=== PATIENT | female | born 1950 | race Caucasian/White ===

== ENCOUNTER 2017-01-01 16:32 | Observation (INO) | payer BC ==
[2017-01-01] MEDS ORDERED: ASPIRIN 81 MG CHEW PO STA (16:59)
[2017-01-01] MEDS ORDERED: NITROGLYCERIN OINT 1 INCH/GM PACKET TOPICAL STA (16:59)
--- NOTE | 2017-01-01 17:03 | ED ---
Chest Pain HPI - General Chief Complaint: Chest Pain Stated Complaint: Chest Pain Time Seen by Provider: 01/01/17 16:43 Source: patient Mode of arrival: EMS Limitations: no limitations - History of Present Illness Initial Comments: This 66-year-old white male female presents with a complaint of some chest pain. It is primarily into the lower sternal region and described as a pressure -type burning sensation. She denies any radiation of the pain but does state that her feet and hands felt numb at one point. It is associated with some shortness of breath as well as some diaphoresis. She states that her chest pain resolved approximately 3 minutes before EMS arrival. She apparently took 3 baby aspirin earlier. She denies any heart problems in the past. She's never had a heart catheterization or stress test. She denies any leg pain or swelling or history of DVT or PE. She apparently has had 5-6 episodes of this previously but has never been checked out medically for them. She states that they usually last approximately 30 minutes and then go away. This current event was non-exertionally related. Her last event was back in August of this year. She denies any chronic medical problems and does not take any medications at home. No other complaints or modifying factors. - Related Data Home Medications Medication Instructions Recorded Confirmed No Known Home Medications [No 01/01/17 01/01/17 Known Home Medications] Allergies Allergy/AdvReac Type Severity Reaction Status Date / Time No Known Allergies Allergy Verified 01/01/17 16:48 Review of Systems ROS Statement: Those systems with pertinent positive or pertinent negative responses have been documented in the HPI. ROS Other: All systems not noted in ROS Statement are negative. Past Medical History Past Medical History: No Reported History History of Any Multi-Drug Resistant Organisms: None Reported Past Surgical History: Tubal Ligation Past Psychological History: No Psychological Hx Reported Smoking Status: Never smoker Past Alcohol Use History: None Reported Past Drug Use History: None Reported General Exam - General Exam Comments Initial Comments: GENERAL: The patient is well nourished and well hydrated. VITAL SIGNS: Heart rate, blood pressure, respiratory rate reviewed as recorded in nurse's notes. EYES: Pupils are round and reactive. Extraocular movements are intact. No conjunctival / lid redness or swelling. ENT: No external evidence of injury, swelling, or ecchymosis. Airway is patent. Throat is clear. NECK: Nontender. No swelling or evidence of injury. No subcutaneous emphysema. Trachea is midline. No thyroid mass. HEART: Regular rate and rhythm. Good peripheral pulses. LUNGS/CHEST: Breath sounds clear and equal bilaterally. No rales, rhonchi, or wheezes. No ecchymosis, subcutaneous emphysema, or tenderness. ABDOMEN: Abdomen soft without tenderness. No palpable masses or organomegaly. No peritoneal signs. No abdominal wall swelling or ecchymosis. EXTREMITIES: No extremity tenderness. Normal muscle tone and function. No thoracolumbar tenderness. NEUROLOGIC: Sensation is grossly intact. Cranial nerve exam reveals face is symmetrical, tongue is midline, speech is clear. SKIN: No abrasions or ecchymosis is noted. No induration or masses noted. PSYCHIATRIC: Alert and oriented. Appropriate behavior and judgment. Limitations: no limitations Course Vital Signs 01/01/17 01/01/17 16:33 17:41 Temperature 98.2 F Pulse Rate 58 L 61 Respiratory 20 18 Rate Blood Pressure 135/70 119/70 O2 Sat by Pulse 99 98 Oximetry Chest Pain [facility] The patient was seen and examined. All diagnostics were reviewed. EKG shows a normal sinus rhythm at a rate of 61 with an incomplete right bundle-branch block. There is no acute ST-T wave changes identified. The SC interval is 152 , QRS duration is 112, and the QTc interval is 442. She receives some Nitropaste as well as aspirin. She states that all of her chest pain has resolved upon initial evaluation. She still is having some mild shortness of breath. The laboratory is reviewed and overall is fairly unremarkable. The chest x-ray does not show any acute processes per my review. The possibility of acute coronary syndrome certainly is possible. It is felt as though her symptoms are fairly classic with no previous cardiac workup to rule out any coronary artery disease. It is felt as though she would require admission to the hospital for further treatment. She is agreeable. Case is discussed with LEILA May who is agreeable to admission under Dr. Domingo. Disposition Clinical Impression: Chest pain, Dyspnea, Unstable angina Disposition: ADMITTED IP TO THIS [facility] Condition: Fair Time of Disposition: 18:27 Decision Date: 01/01/17 Decision Time: 18:27
[2017-01-01 17:39] LABS: Basophils # (A) 0.1 k/uL (0-0.2); Basophils % (A) 1 %; CH 31.3; CHCM 33.6; Eosinophils # (A) 0.1 k/uL (0-0.7); Eosinophils % (A) 2 %; HCT 40.4 % (34.0-46.0); HDW 2.48; HGB 13.4 gm/dL (11.4-16.0); Luc # (Auto) 0.08; Luc % (Auto) 1; Lymphocytes # (A) 1.6 k/uL (1.0-4.8); Lymphocytes % (A) 18 %; MCHC 33.1 g/dL (31.0-37.0); MCV 93.6 fL (80.0-100.0); Mean Platelet Volume 7.5; Monocytes # (A) 0.5 k/uL (0-1.0); Monocytes % (A) 5 %; Neutrophils # (A) 6.6 k/uL (1.3-7.7); Neutrophils % (A) 74 %; RBC 4.32 m/uL (3.80-5.40); RDW 14.5 % (11.5-15.5); WBC (Perox) 8.56
[2017-01-01 17:47] LABS: ALT 45 U/L (9-52); AST 62 U/L (14-36); Alkaline Phosphatase 57 U/L (38-126); Blood Urea Nitrogen 12 mg/dL (7-17); Calcium 9.2 mg/dL (8.4-10.2); Carbon Dioxide 26 mmol/L (22-30); Chloride 107 mmol/L (98-107); Glucose 91 mg/dL (74-99); Magnesium 2.1 mg/dL (1.6-2.3); Non-African American GFR(MDRD) >60 (>60 ml/min/1.73 sqM); Total Bilirubin 0.5 mg/dL (0.2-1.3); Total Protein 6.6 g/dL (6.3-8.2)
[2017-01-01 17:48] LABS: Anion Gap 9 mmol/L; Potassium 3.8 mmol/L (3.5-5.1); Sodium 142 mmol/L (137-145)
[2017-01-01 17:57] LABS: Creatine Kinase 107 U/L (30-135)
[2017-01-01 18:06] LABS: Prothrombin Time 10.3 sec (9.0-12.0)
[2017-01-01 18:09] LABS: Troponin I <0.012 ng/mL (0.000-0.034)
--- NOTE | 2017-01-01 18:18 | XR ---
EXAMINATION TYPE: XR chest 2V DATE OF EXAM: 01/01/2017 COMPARISON: NONE HISTORY: Chest pain TECHNIQUE: Frontal and lateral views of the chest are obtained. FINDINGS: Heart and mediastinum are normal. Lungs are clear. Thoracic aorta shows mild atheromatous change. There are no hilar masses. There is no pleural effusion. Bony thorax is intact. IMPRESSION: No active cardiopulmonary disease.
[2017-01-01] MEDS ORDERED: NITROGLYCERIN SL TABS 0.4 MG TAB SUBLINGUAL PRN (18:27)
[2017-01-01] MEDS ORDERED: HEPARIN SODIUM,PORCINE 5,000 UNIT/ML 1 ML VIAL IV ONE (18:27)
[2017-01-01] MEDS ORDERED: HEPARIN SODIUM,PORCINE 5,000 UNIT/ML 1 ML VIAL IV PRN (18:27)
[2017-01-01] MEDS ORDERED: HEPARIN SODIUM,PORCINE/D5W PMX 25,000 UNIT in DEXTROSE/WATER 1 500ML.BAG IV SCH (18:30)
[2017-01-01 20:05] VITALS: BMI 25.1
[2017-01-01] MEDS ORDERED: ACETAMINOPHEN TAB 325 MG TAB PO PRN (22:52)
[2017-01-01] MEDS: NITROGLYCERIN OINT 1 INCH/GM PACKET TOPICAL SCH (23:41)
[2017-01-02 00:41] LABS: Creatine Kinase 97 U/L (30-135)
[2017-01-02 00:55] LABS: Troponin I <0.012 ng/mL (0.000-0.034)
[2017-01-02] MEDS: NITROGLYCERIN OINT 1 INCH/GM PACKET TOPICAL SCH ×2 (05:51→13:08)
[2017-01-02 05:57] LABS: Mean Platelet Volume 7.7
[2017-01-02 06:08] LABS: Cholesterol 204 mg/dL (<200); HDL Cholesterol 74 mg/dL (40-60)
[2017-01-02 06:38] LABS: Creatine Kinase 97 U/L (30-135)
[2017-01-02 06:50] LABS: Creatine Kinase MB 0.9 ng/mL (0.0-2.4); Troponin I <0.012 ng/mL (0.000-0.034)
[2017-01-02 07:58] VITALS: RESP 18
[2017-01-02] MEDS ORDERED: ASPIRIN 325 MG TAB PO SCH (09:00)
--- NOTE | 2017-01-02 09:13 | ECHOF ---
Referral Reason:cp and sob MEASUREMENTS -------- HEIGHT: 175.3 cm WEIGHT: 77.1 kg BP: 101/54 IVSd: 1.1 cm (0.6 - 1.1) LVIDd: 3.9 cm (3.9 - 5.3) LVPWd: 1.4 cm (0.6 - 1.1) IVSs: 1.7 cm LVIDs: 2.5 cm LVPWs: 1.7 cm Ao Diam: 3.1 cm (2.0 - 3.7) AV Cusp: 1.4 cm (1.5 - 2.6) LA Diam: 2.6 cm (2.7 - 3.8) MV EXCURSION: 13.189 mm (> 18.000) MV EF SLOPE: 99 mm/s (70 - 150) EPSS: 0.8 cm MV E Wally: 0.77 m/s MV DecT: 232 ms MV A Wally: 0.53 m/s MV E/A Ratio: 1.44 RAP: 5.00 mmHg RVSP: 14.00 mmHg FINDINGS -------- Sinus rhythm. This was a technically good study. There is mild concentric left ventricular hypertrophy. Overall left ventricular systolic function is normal with, an EF between 55 - 60 %. The right ventricle is normal in size and function. The left atrium is normal in size. The right atrium is normal in size. The aortic valve is trileaflet, and appears structurally normal. No aortic stenosis or regurgitation. There is trace mitral regurgitation. Trace tricuspid regurgitation present. The right ventricular systolic pressure, as measured by Doppler, is 14.00mmHg. Pulmonic valve appears structurally normal. The aortic root size is normal. Normal inferior vena cava with normal inspiratory collapse consistent with estimated right atrial pressure of 5 mmHg. The pericardium is normal. Echo free space may represent effusion or a pericardial fat pad. CONCLUSIONS -------- 1. Sinus rhythm. 2. Trace tricuspid regurgitation present. 3. The right ventricular systolic pressure, as measured by Doppler, is 14.00mmHg. 4. Pulmonic valve appears structurally normal. 5. The aortic root size is normal. 6. Normal inferior vena cava with normal inspiratory collapse consistent with estimated right atrial pressure of 5 mmHg. 7. The pericardium is normal. 8. Echo free space may represent effusion or a pericardial fat pad. 9. This was a technically good study. 10. There is mild concentric left ventricular hypertrophy. 11. Overall left ventricular systolic function is normal with, an EF between 55 - 60 %. 12. The right ventricle is normal in size and function. 13. The left atrium is normal in size. 14. The right atrium is normal in size. 15. The aortic valve is trileaflet, and appears structurally normal. No aortic stenosis or regurgitation. 16. There is trace mitral regurgitation. HEATING TECHNICIAN: Jessie Perez RDCS
--- NOTE | 2017-01-02 10:06 | P.CRDCN ---
History of Present Illness Consult date: 01/02/17 History of present illness: This is a 66-year-old female with no significant past medical history. She presented to the emergency department with complaints of midsternal chest pressure associated with shortness of breath and bilateral finger tingling. The pain is described as burning. Does not radiate into the arm neck or jaw. The chest pain came on while she was doing some light housework. The pain resolved on its own. With no specific aggravating or alleviating factors she can verbalize. She states she has never seen a butcher assistant for any reason. She follows with Dr. Amaral periodically. She has never had a stress test he does not take any daily medications. This has happened approximately 5-6 times over the previous year and she has never been checked out medically for any of these symptoms. She is was associated this with the reflux. She did eat 30 minutes prior to this particular event. EKG shows a partial right bundle branch block, there is no old EKG for comparison. No ST changes. Chest x-ray is negative for any acute cardiopulmonary process. Troponins are negative 3. Review of Systems REVIEW OF SYSTEMS: Symptoms have completely resolved. Patient denies any chest discomfort. No shortness of breath. No diaphoresis. Denies headache, dizziness, blurred vision, double vision. No dyspnea on exertion. Patient denies any stomach discomfort. No nausea, vomiting. No hematochezia. No hematemesis. Denies any black stools or blood in his stools. No syncope. No palpitations. No cough. No recent fever or chills. No muscle weakness or numbness. Past Medical History Past Medical History: No Reported History History of Any Multi-Drug Resistant Organisms: None Reported Past Surgical History: Tubal Ligation Additional Past Surgical History / Comment(s): Bumionectomy Past Anesthesia/Blood Transfusion Reactions: No Reported Reaction Past Psychological History: Depression Smoking Status: Never smoker Past Alcohol Use History: None Reported Past Drug Use History: None Reported - Past Family History Mother Family Medical History: CVA/TIA Additional Family Medical History / Comment(s): Mastectomy Father History Unknown: Yes Brother(s) Additional Family Medical History / Comment(s): of pancreatic CA Medications and Allergies Home Medications Medication Instructions Recorded Confirmed Type No Known Home Medications [No 01/01/17 01/01/17 History Known Home Medications] Allergies Allergy/AdvReac Type Severity Reaction Status Date / Time No Known Allergies Allergy Verified 01/01/17 23:47 Physical Exam Vitals: Vital Signs Temp Pulse Pulse Resp BP BP Pulse Ox 01/02/17 07:57 97.5 F L 60 18 100/63 97 01/02/17 04:00 50 L 16 01/02/17 03:51 98.2 F 60 16 101/54 94 L 01/02/17 00:00 48 L 16 01/01/17 23:42 98.1 F 62 16 102/64 96 01/01/17 20:00 52 L 16 01/01/17 19:27 97.7 F 65 16 126/76 93 L 01/01/17 18:48 97.3 F L 01/01/17 18:27 66 20 130/73 97 01/01/17 17:41 61 18 119/70 98 01/01/17 16:33 98.2 F 58 L 20 135/70 99 Intake and Output 01/01/17 01/02/17 01/02/17 22:59 06:59 14:59 Intake Total 612 495.196 Balance 612 495.196 Intake: IV 40 269 0.9 NS @ KVO 40 160 Heparin Sodium,Porcine/ 109 D5w Pmx 25,000 unit In Dextrose/Water 1 500ml. bag @ 12 UNITS/KG/HR 18.5 mls/hr IV .Q24H [facility] Rx#: [id number] Intake, IV Titration 72 226.196 Amount Heparin Sodium,Porcine/ 72 226.196 D5w Pmx 25,000 unit In Dextrose/Water 1 500ml. bag @ 12 UNITS/KG/HR 18.5 mls/hr IV .Q24H [facility] Rx#: [id number] Oral 500 Other: Voiding Method Toilet Toilet # Voids 2 3 Weight 77.111 kg GENERAL: This is a 66-year-old female in no apparent distress at the time of my examination. HEENT: Head is atraumatic, normocephalic. Pupils are equal, round. Sclerae anicteric. Conjunctivae are clear. Mucous membranes of the mouth are moist. Neck is supple. There is no jugular venous distention. No carotid bruit is heard. LUNGS: Clear to auscultation no wheezes, rales or rhonchi. No chest wall tenderness is noted on palpation or with deep breathing. HEART: Regular rate and rhythm without murmurs, rubs or gallops. S1 and S2 heard. ABDOMEN: Soft, nontender. Bowel sounds are heard. No organomegaly noted. EXTREMITIES: 2+ peripheral pulses with no evidence of peripheral edema and no calf tenderness noted. NEUROLOGIC: Patient is awake, alert and oriented x3. Results 01/02/17 05:29 01/01/17 17:30 Cardiac Enzymes 01/01/17 01/01/17 01/01/17 Range/Units 17:30 17:30 23:54 AST 62 H (14-36) U/L CK-MB (CK-2) 1.0 1.0 (0.0-2.4) ng/mL Troponin I <0.012 <0.012 (0.000-0.034) ng/mL 01/02/17 Range/Units 05:29 AST (14-36) U/L CK-MB (CK-2) 0.9 (0.0-2.4) ng/mL Troponin I <0.012 (0.000-0.034) ng/mL Coagulation 01/01/17 01/01/17 01/02/17 Range/Units 17:30 23:54 05:29 PT 10.3 (9.0-12.0) sec APTT 21.0 L 46.0 H 45.3 H (22.0-30.0) sec Lipids 01/02/17 Range/Units 05:29 Triglycerides 71 (<150) mg/dL Cholesterol 204 H (<200) mg/dL HDL Cholesterol 74 H (40-60) mg/dL CBC 01/01/17 01/02/17 Range/Units 17:30 05:29 WBC 9.0 (3.8-10.6) k/uL RBC 4.32 (3.80-5.40) m/uL Hgb 13.4 (11.4-16.0) gm/dL Hct 40.4 (34.0-46.0) % Plt Count 210 179 (150-450) k/uL Comprehensive Metabolic Panel 01/01/17 Range/Units 17:30 Sodium 142 (137-145) mmol/L Potassium 3.8 (3.5-5.1) mmol/L Chloride 107 (98-107) mmol/L Carbon Dioxide 26 (22-30) mmol/L BUN 12 (7-17) mg/dL Creatinine 0.70 (0.52-1.04) mg/dL Glucose 91 (74-99) mg/dL Calcium 9.2 (8.4-10.2) mg/dL AST 62 H (14-36) U/L ALT 45 (9-52) U/L Alkaline Phosphatase 57 (38-126) U/L Total Protein 6.6 (6.3-8.2) g/dL Albumin 4.0 (3.5-5.0) g/dL Current Medications Generic Name Dose Route Start Last Admin Trade Name Freq PRN Reason Stop Dose Admin Acetaminophen 650 mg 01/01/17 22:52 01/01/17 22:57 Tylenol Tab PO 650 mg Q6HR PRN Administration Fever and/ or Pain Aspirin 325 mg 01/02/17 09:00 01/02/17 09:43 Aspirin PO 325 mg DAILY [facility] Administration Nitroglycerin 1 inch 01/02/17 00:00 01/02/17 05:51 Nitro-Bid Oint TOPICAL Not Given Q6HR [facility] Nitroglycerin 0.4 mg 01/01/17 18:27 Nitrostat SUBLINGUAL Q5M PRN Chest Pain Sodium Chloride 10 ml 01/01/17 21:00 01/02/17 09:43 Saline Flush IV 10 ml BID [facility] Administration Intake and Output 01/01/17 01/02/17 01/02/17 22:59 06:59 14:59 Intake Total 612 495.196 Balance 612 495.196 Intake: IV 40 269 0.9 NS @ KVO 40 160 Heparin Sodium,Porcine/ 109 D5w Pmx 25,000 unit In Dextrose/Water 1 500ml. bag @ 12 UNITS/KG/HR 18.5 mls/hr IV .Q24H [facility] Rx#: [id number] Intake, IV Titration 72 226.196 Amount Heparin Sodium,Porcine/ 72 226.196 D5w Pmx 25,000 unit In Dextrose/Water 1 500ml. bag @ 12 UNITS/KG/HR 18.5 mls/hr IV .Q24H [facility] Rx#: [id number] Oral 500 Other: Voiding Method Toilet Toilet # Voids 2 3 Weight 77.111 kg 01/02/17 05:29 01/01/17 17:30 - Imaging and Cardiology Echo: report reviewed (Right ventricular systolic pressure 14 mmHg, ejection fraction 55-60%) - EKG Interpretation EKG: sinus rhythm, normal ST/T (No old EKG for comparison. EKG shows a incomplete right bundle branch block.) Assessment and Plan Plan: ASSESSMENT 1. Chest pain, atypical PLAN We will proceed with a complete echocardiogram as well as a stress echo. From a cardiac standpoint if the stress echo is negative the patient is stable for discharge home. We will not add any medications at this time. She should follow -up with Dr. Amaral further evaluate possible gastrointestinal etiology. Thank you for this consultation. Nurse Practitioner note has been reviewed, I agree with a documented findings and plan of care. Patient was seen and examined.
--- NOTE | 2017-01-02 11:14 | ECHOS ---
DATE OF SERVICE: 01/02/2017 TYPE OF REPORT: STRESS ECHOCARDIOGRAM INDICATION: Chest pain. BASELINE HEART RATE: 63 BASELINE BLOOD PRESSURE: 128/80 MAXIMUM HEART RATE: 148 MAXIMUM BLOOD PRESSURE: 170/74 85% MPHR: 133 100% MPHR: 156 METS: II MAXIMUM STAGE REACHED: 7.3 TOTAL EXERCISE TIME: 6:02 Baseline EKG revealed a normal sinus rhythm with an incomplete right bundle branch block pattern. Patient walked for 6 minutes on a standard Bridger protocol. Achieved a maximal heart rate of 148 beats per minute, well above 85 % of predicted maximal. Resting heart rate was 63. Peak heart rate was 148. Resting blood pressure was 128/80 and peak blood pressure was 170/74. EKG did not reveal any ST-segment changes to indicate ischemia. Patient did not have any angina or arrhythmia. By EKG criteria this is a negative stress test with fair exercise capacity. Baseline echo images reveal a normal wall motion, wall thickening of all segments. At peak exercise, there was good augmentation of left ventricular wall motion, wall thickening or all segments suggesting that there is no evidence of stress induced ischemia on this study. FINAL IMPRESSION: 1. By EKG criteria, this is a negative stress test with fair exercise capacity. 2. Negative stress echocardiogram. KWAKUD
[2017-01-02 15:44] VITALS: BP 133/65; PULSE 77; TEMP 98.5
--- NOTE | 2017-01-02 22:16 | P.HPIM ---
History of Present Illness H&P Date: 01/02/17 Chief Complaint: Chest pain This is a 66-year-old female without significant past medical history presented to the emergency department with complaints of midsternal chest pressure associated with shortness of breath and bilateral finger tingling and diaphoresis. Patient is mainly in the epigastric region. burning type. Does not radiate into the arm neck or jaw. The chest pain came on while she was doing some light housework. The pain resolved on its own. Lasted for about 15- 20 minutes. With no specific aggravating or alleviating factors she can verbalize. She follows with Dr. Amaral periodically. She has never had a stress test he does not take any daily medications. Patient denied any recent travel or illness. This has happened approximately 5-6 times over the previous year and she has never been checked out medically for any of these symptoms. No history of GERD or hiatal hernia. She did eat 30 minutes prior to this particular event. EKG shows a partial right bundle branch block, there is no old EKG for comparison. No ST changes. Chest x-ray is negative for any acute cardiopulmonary process. Troponins are negative 3. Review of Systems CONSTITUTIONAL: No fever, no malaise, no fatigue. HEENT: No recent visual problems or hearing problems. Denied any sore throat. CARDIOVASCULAR: No chest pain, orthopnea, PND, no palpitations, no syncope. PULMONARY: , no hemoptysis. GASTROINTESTINAL: No diarrhea, no nausea, no vomiting, no abdominal pain. Normoactive bowel sounds. NEUROLOGICAL: No headaches, no weakness, no numbness. HEMATOLOGICAL: Denies any bleeding or petechiae. GENITOURINARY: Denies any burning micturition, frequency, or urgency. MUSCULOSKELETAL/RHEUMATOLOGICAL: Denies any joint pain, swelling, or any muscle pain. ENDOCRINE: Denies any polyuria or polydipsia. The rest of the 14-point review of systems is negative. Past Medical History Past Medical History: No Reported History History of Any Multi-Drug Resistant Organisms: None Reported Past Surgical History: Tubal Ligation Additional Past Surgical History / Comment(s): Bumionectomy Past Anesthesia/Blood Transfusion Reactions: No Reported Reaction Past Psychological History: Depression Smoking Status: Never smoker Past Alcohol Use History: None Reported Past Drug Use History: None Reported - Past Family History Mother Family Medical History: CVA/TIA Additional Family Medical History / Comment(s): Mastectomy Father History Unknown: Yes Brother(s) Additional Family Medical History / Comment(s): of pancreatic CA Medications and Allergies Home Medications Medication Instructions Recorded Confirmed Type No Known Home Medications [No 01/01/17 01/01/17 History Known Home Medications] Allergies Allergy/AdvReac Type Severity Reaction Status Date / Time No Known Allergies Allergy Verified 01/01/17 23:47 Physical Exam Vitals: Vital Signs Temp Pulse Pulse Resp BP BP Pulse Ox 01/02/17 15:43 98.5 F 77 18 133/65 95 01/02/17 11:47 97.9 F 66 18 111/62 97 01/02/17 07:57 97.5 F L 60 18 100/63 97 01/02/17 04:00 50 L 16 01/02/17 03:51 98.2 F 60 16 101/54 94 L 01/02/17 00:00 48 L 16 01/01/17 23:42 98.1 F 62 16 102/64 96 01/01/17 20:00 52 L 16 01/01/17 19:27 97.7 F 65 16 126/76 93 L 01/01/17 18:48 97.3 F L 01/01/17 18:27 66 20 130/73 97 Intake and Output 01/02/17 01/02/17 01/02/17 06:59 14:59 22:59 Intake Total 495.196 360 Balance 495.196 360 Intake: IV 269 0.9 NS @ KVO 160 Heparin Sodium,Porcine/ 109 D5w Pmx 25,000 unit In Dextrose/Water 1 500ml. bag @ 12 UNITS/KG/HR 18.5 mls/hr IV .Q24H [facility] Rx#: [id number] Intake, IV Titration 226.196 Amount Heparin Sodium,Porcine/ 226.196 D5w Pmx 25,000 unit In Dextrose/Water 1 500ml. bag @ 12 UNITS/KG/HR 18.5 mls/hr IV .Q24H [facility] Rx#: [id number] Oral 360 Other: Voiding Method Toilet Toilet Toilet # Voids 3 PHYSICAL EXAMINATION: Patient is lying in the bed comfortably, no acute distress, awake alert and oriented.. HEENT: Normocephalic. Neck is supple. Pupils reactive. Nostrils clear. Oral cavity is moist. Ears reveal no drainage. Neck reveals no JVD, carotid bruits, or thyromegaly. CHEST EXAMINATION: Trachea is central. Symmetrical expansion. Lung russell clear to auscultation and percussion. CARDIAC: Normal S1, S2 with no gallops. No murmurs ABDOMEN: Soft. Bowel sounds normal. No organomegaly. No abdominal bruits. Extremities reveal no edema. No clubbing or cyanosis Neurologically awake, alert, oriented x3 with well-coordinated movements. Skin: no rash or skin lesions Musculoskeletal: no joint swelling or deformity. Results CBC & Chem 7: 01/02/17 05:29 01/01/17 17:30 Labs: Abnormal Lab Results - Last 24 Hours (Table) 01/01/17 01/02/17 01/02/17 Range/Units 23:54 05:29 05:29 APTT 46.0 H 45.3 H (22.0-30.0) sec Cholesterol 204 H (<200) mg/dL LDL Cholesterol, Calc 116 H (0-99) mg/dL HDL Cholesterol 74 H (40-60) mg/dL Thrombosis Risk Factor Assmnt - DVT/VTE Prophylaxis DVT/VTE Prophylaxis: Pharmacologic Prophylaxis ordered - Choose All That Apply Any of the Below Risk Factors Present?: No Other Risk Factors: Yes Each Risk Factor Represents 2 Points: Age 61-74 years Other congenital or acquired thrombophilia - If yes, enter type in comment: No Thrombosis Risk Factor Assessment Total Risk Factor Score: 2 Thrombosis Risk Factor Assessment Level: Low Risk Assessment and Plan Plan: #1 atypical chest pain. Likely gastrointestinal origin #2 no history of smoking. No history of GERD hiatal hernia. Plan. Patient will be continued on telemetry monitoring. Cardiology has been consulted due to frequent onset of symptoms. Patient was recommended to have stress echocardiogram. We will continue with telemetry monitoring and follow closely. further recommendations based on the clinical course..
--- NOTE | 2017-01-02 22:19 | P.DS ---
Providers Date of admission: 01/01/17 18:27 Expected date of discharge: 01/02/17 Attending physician: Owen Domingo Consults: 01/01/17 18:27 Consult Physician Urgent Consulting Provider: Nahid Zaldivar Consult Reason/Comments: cp and sob Do you want consulting provider notified?: Yes Primary care physician: Munir Delatorre Hospital Course: Discharge diagnosis: #1 atypical chest pain. Likely GERD. Stress echo negative. Low take it con's syndrome #2 hyperlipidemia #2 no history of smoking. No history of GERD hiatal hernia. Hospital course This is a 66-year-old female without significant past medical history presented to the emergency department with complaints of midsternal chest pressure associated with shortness of breath and bilateral finger tingling and diaphoresis. Patient is mainly in the epigastric region. burning type. Does not radiate into the arm neck or jaw. The chest pain came on while she was doing some light housework. The pain resolved on its own. Lasted for about 15- 20 minutes. With no specific aggravating or alleviating factors she can verbalize. She follows with Dr. Amaral periodically. She has never had a stress test he does not take any daily medications. Patient denied any recent travel or illness. This has happened approximately 5-6 times over the previous year and she has never been checked out medically for any of these symptoms. No history of GERD or hiatal hernia. She did eat 30 minutes prior to this particular event. EKG shows a partial right bundle branch block, there is no old EKG for comparison. No ST changes. Chest x-ray is negative for any acute cardiopulmonary process. Troponins are negative 3. Patient was seen by cardiology and recommended stress echocardiogram. Which was done and is negative result. Otherwise patient is chest pain-free. Patient was also found to have elevated cholesterol level with the LDL level 111. Patient advised with diet and exercise and lifestyle modification. Otherwise patient is stable to be discharged home. Procedures: Stress echocardiogram Patient Condition at Discharge: Stable Plan - Discharge Summary New Discharge Prescriptions: No Action No Known Home Medications [No Known Home Medications] Discharge Medication List No Known Home Medications [No Known Home Medications] 01/01/17 [History] Follow up Appointment(s)/Referral(s): Gurpreet White MD [STAFF PHYSICIAN] - As Needed Juan Ramon Amaral MD [Primary Care Provider] - 3 Days Patient Instructions/Handouts: Chest Pain (GEN) Discharge Disposition: HOME SELF-CARE
== END 2017-01-02 17:36 | disposition home or self-care (01) ==
LOC: EC 16:32 → 3OBS 18:27
PROVIDERS: ADMIT Internal Medicine; ATTEND Internal Medicine
DX: R07.89 Other chest pain (principal); E78.5 Hyperlipidemia, unspecified; E78.00 Pure hypercholesterolemia, unspecified; R20.2 Paresthesia of skin; R61 Generalized hyperhidrosis; R10.13 Epigastric pain; R06.02 Shortness of breath; Z80.0 Family history of malignant neoplasm of digestive organs; Z82.3 Family history of stroke
CPT/HCPCS: 99285 ×2; 96376 ×2; 96365; 96366 ×2; 36415; 93005; 93017; 93306; 93350; 85379; 80061; 80053; 82550 ×2; 82553 ×2; 83735; 84484 ×2; 85025; 85049; 85610; 85730 ×2; 71020; G0378 ×2; J1644 ×2

== ENCOUNTER 2017-01-30 12:06 | Day surgery (SDC) | payer BC ==
[2017-01-26 12:35] VITALS: BMI 25.4
[~2017-01-30 12:06] MED LIST: LACTATED RINGERS 1,000 ML IV SCH
[2017-01-30] MEDS ORDERED: LIDOCAINE 1% 20 ML VIAL (10MG/ML) FOR IV START INTRADERMA ONE (12:34)
[2017-01-30] MEDS ORDERED: PROPOFOL 10 MG/ML 20 ML VIAL IV ONE (13:14)
[2017-01-30] MEDS ORDERED: GLYCOPYRROLATE 0.2 MG/ML 2 ML VIAL ONE (13:14)
[2017-01-30] MEDS ORDERED: LIDOCAINE 1% INJ 10MG/ML (20 ML MDV) ONE (13:14)
[2017-01-30 14:14] VITALS: BP 115/77; PULSE 62; RESP 18; TEMP 97.4
--- NOTE | 2017-01-30 14:34 | P.PCN ---
Date of Procedure: 01/30/17 Preoperative Diagnosis: Postoperative Diagnosis: Procedure(s) Performed: Procedures: 1. Esophagogastroduodenoscopy and biopsy. 2. Total colonoscopy. Preoperative diagnosis: Atypical chest pain and screening for colon cancer. Postoperative diagnosis: 1. Very small sliding hiatal hernia with no obvious esophagitis or complicated reflux disease. 2. Minimal gastritis and duodenitis. 3. Normal colon exam. Preparation: HalfLytely prep. Sedation: Was provided by anesthesia. Brief clinical history: The patient is a 66-year-old female who was recently hospitalized for epigastric pain and atypical chest pain with negative cardiac workup. She was recommended GI workup to rule out peptic ulcer disease or complicated reflux disease. In addition, and since she had no prior colonoscopy we were asked to consider a colonoscopy as well. Procedure: With the patient on her left lateral decubitus position and after informed consent and adequate sedation, I passed the Olympus-GIF 160 video upper endoscope through the cricopharyngeus down the esophagus. GE junction was around 40 cm from the incisors and there was a small sliding hiatal hernia. The esophagus appeared healthy with no evidence of esophagitis or complicated reflux disease. The endoscope was then passed into the stomach which was insufflated with air and inspected in detail including the retroflex view in the cardia. There was some mottling and erythema in the antrum but no ulcers or erosions. Pyloric channel did not show any ulcers. Duodenal bulb, post bulbar area and descending duodenum showed minimal erythema. I obtained biopsies from the duodenum, antrum and esophagus then the endoscope was withdrawn and I proceeded with the colonoscopy. The perianal area did not show any fissures or fistulas. There were no masses felt on digital rectal examination. The Olympus CFQ 160L video colonoscope was then inserted in the rectum in the usual fashion and advanced to the cecum. The mucosa appeared healthy. No polyps or tumors were seen or any obvious diverticular disease or other pathology. I retroflexed the endoscope in the rectum before the endoscope was withdrawn. The patient tolerated the procedure well. Plan: The patient was reassured. Will await pathology results. I recommended repeat screening colonoscopy in around 10 years. She will follow-up with you as planned and further plans will be made based on her course and biopsy results. Consideration would be given for imaging studies of the gallbladder and pancreas. Implants: Indications for Procedure: Operative Findings: Description of Procedure:
== END 2017-01-30 14:34 | disposition home or self-care (01) ==
LOC: ORWHC2ENDO 12:06
DX: K21.9 Gastro-esophageal reflux disease without esophagitis (principal); R19.4 Change in bowel habit; K44.9 Diaphragmatic hernia without obstruction or gangrene; K29.80 Duodenitis without bleeding; K29.50 Unspecified chronic gastritis without bleeding; B96.81 Helicobacter pylori [H. pylori] as the cause of diseases classified elsewhere
CPT/HCPCS: 88305; 88342; 45378; 43239; J2001; J2704

== ENCOUNTER → 2017-03-07 | Outpatient (CLI) | payer BC ==
--- NOTE | 2017-03-07 11:54 | US ---
EXAMINATION TYPE: US abdomen complete DATE OF EXAM: 03/07/2017 COMPARISON: NONE CLINICAL HISTORY: R10.84 Gen Abd Pain. Patient stated has had multiple episodes in past 3 years of ep igastric pain radiating to back; recently admitted for cardiac workup. EXAM MEASUREMENTS: Liver Length: 16.2 cm Gallbladder Wall: 0.4 cm CBD: 0.5 cm Spleen: 8.2 cm Right Kidney: 10.1 x 3.8 x 5.3 cm Left Kidney: 9.8 x 4.0 x 5.9 cm Pancreas: Unremarkable Liver: Unremarkable Gallbladder: non mobile, large shadowing stone = 4.0 x 1.9 x 1.9cm imaged in fundus of gallbladder w ith separate sludge area; thickened gallbladder wall Evidence for sonographic Lawson's sign: No CBD: wnl Spleen: wnl Right Kidney: No hydronephrosis or masses seen Left Kidney: No hydronephrosis or masses seen Upper IVC: wnl Abd Aorta: wnl IMPRESSION: Large shadowing cholelith within the gallbladder body without common bile duct dilation, pericholecys tic fluid, or gallbladder wall thickening to indicate acute cholecystitis.
== END | disposition home or self-care (01) ==
LOC: RADUSWWP 09:22
PROVIDERS: ATTEND Internal Medicine
DX: K80.20 Calculus of gallbladder without cholecystitis without obstruction (principal)
CPT/HCPCS: 76700

== ENCOUNTER → 2017-04-19 | Outpatient (CLI) | payer BC ==
--- NOTE | 2017-04-19 17:43 | BD ---
EXAMINATION TYPE: MG DEXA axial skeleton. DATE OF EXAM: 04/19/2017 COMPARISON: 12.26.2000 CLINICAL HISTORY: PT IS A 66 YR OLD FEMALE.....ICD-10 CODE: N95.1 POST MENOPAUSAL SYMPTOMS Height: 67.5 Weight: 172 FRAX RISK QUESTIONS: Alcohol (3 or more units per day): NO Family History (Parent hip fracture): NO Glucocorticoids (More than 3mos): NO (Ex: prednisone, prednisolone, methylprednisolone, dexamethasone, and hydrocortisone). History of Fracture in Adulthood: NO Secondary Osteoporosis: NO 1. Type 1 Diabetes: NO 2. Hyperthyroidism: NO 3. Menopause before 45: NO 4. Malnutrition: NO 5. Chronic liver disease: NO Rheumatoid Arthritis: NO Current Tobacco Use: NO RISK FACTORS HISTORY OF: Family History of Osteoporosis: NO Active: YES Diet low in dairy products/other sources of calcium: NO Postmenopausal woman: NATURAL LATE 40'S Lost more than 2 inches in height since high school: YES Hyperparathyroidism: NO Adrenal Insufficiency: NO MEDICATIONS: Additional Medications: CALCIUM MAGNESIUM, VIT D Additional History: NONE TO NOTE EXAM MEASUREMENTS: Bone mineral densitometry was performed using the [employer] System. Bone mineral density as measured about the Lumbar spine is: ----- L1-L4(G/cm2): 1.116 T Score Values are as follows: ----- L1: -0.1 ----- L2: -0.7 ----- L3: -0.3 ----- L4: -1.0 ----- L1-L4: -0.5 Bone mineral density has: Decreased -15.7% since study of: 12.26.2000 Bone mineral density about the R hip (g/cm2): 0.927 Bone mineral density about the L hip (g/cm2): 0.970 T Score values are as follows: -----R Neck: -0.9 -----L Neck: -0.9 -----R Total: -0.6 -----L Total: -0.3 Bone mineral density has: Decreased -9.6% since study of: 12.26.2000 FRAX%'S: THERE IS A 7.8% CHANCE OF A MAJOR OSTEOPOROTIC FX AND A 0.5% OF HIP FX....PROBABILITY OF FX IN 10 YRS TIME IMPRESSION: Normal (Values between +1 and -1 indicate normal bone mass). However, note that measurements border on osteopenia. Consider repeating this study in 5 years or sooner if there is some new clinical indic ation. NOTE: T-SCORE=SD OF THE YOUNG ADULT MEAN.
--- NOTE | 2017-04-20 11:36 | MM ---
Reason for exam: screening (asymptomatic). Last mammogram was performed 3 years and 4 months ago. History: Patient is postmenopausal. Family history of breast cancer in mother at age 91. Benign MG stereo VAD BX RT of the right breast, December 29, 2013. Took estrogen for 1 year. Physical Findings: A clinical breast exam by your physician is recommended on an annual basis and results should be correlated with mammographic findings. MG Screening Mammo w CAD Bilateral CC and MLO view(s) were taken. Prior study comparison: December 17, 2013, right breast MG work up mamm w CAD RT. December 10, 2013, bilateral MG screening mammo w CAD. There are scattered fibroglandular densities. There is chronic nodularity bilaterally, stable. No significant changes when compared with prior studies. ASSESSMENT: Benign, BI-RAD 2 RECOMMENDATION: Routine screening mammogram of both breasts in 1 year.
== END | disposition home or self-care (01) ==
LOC: RADBDWWP 13:34
PROVIDERS: ATTEND Obstetrics & Gynecology
DX: Z12.31 Encounter for screening mammogram for malignant neoplasm of breast (principal); M85.80 Other specified disorders of bone density and structure, unspecified site; N95.1 Menopausal and female climacteric states
CPT/HCPCS: 77080; G0202

== ENCOUNTER → 2022-04-28 | Outpatient (CLI) | payer MEDICARE ==
--- NOTE | 2022-05-01 08:11 | MM ---
Reason for Exam: Screening (asymptomatic). Last mammogram was performed 5 year(s) and 1 month(s) ago. Patient History: Menarche at age 18. First Full-Term at age 20. Postmenopausal. Patient used Estrogen for 1 year. 12/29/2013, Benign Core Biopsy on the right side. Mother had breast cancer, age 91. Daughter had breast cancer, age 48. Risk Values: Kavitha 5 year model risk: 8.7%. NCI Lifetime model risk: 24.5%. Prior Study Comparison: 12/10/2013 Bilateral Screening Mammogram, [facility]. 12/17/2013 Right Diagnostic Mammogram, [facility]. 04/19/2017 Bilateral Screening Mammogram, [facility]. Tissue Density: The breast tissue is heterogeneously dense. This may lower the sensitivity of mammography. Findings: Analyzed By CAD. There is no suspicious group of microcalcifications or new suspicious mass in either breast. Overall Assessment: Benign, BI-RAD 2 Management: Screening Mammogram of both breasts in 1 year. A clinical breast exam by your physician is recommended on an annual basis and results should be correlated with mammographic findings. Electronically signed and approved by: Vinod Morales M.D. Radiologis
== END | disposition home or self-care (01) ==
LOC: RADMAMWWP 12:40
PROVIDERS: ATTEND Obstetrics & Gynecology
DX: Z12.31 Encounter for screening mammogram for malignant neoplasm of breast (principal); Z78.0 Asymptomatic menopausal state; Z80.3 Family history of malignant neoplasm of breast
CPT/HCPCS: 77063; 77067

== ENCOUNTER → 2023-02-27 | Outpatient (CLI) | payer MEDICARE ==
[2023-02-27 15:11] LABS: Basophils # (A) 0.09 X 10*3/uL (0.00-0.10); Basophils % (A) 1.4 %; Eosinophils # (A) 0.23 X 10*3/uL (0.04-0.35); Eosinophils % (A) 3.6 %; HCT 43.2 % (37.2-46.3); HGB 13.8 d/dL (12.0-15.0); Immature Grans, Automated 0 %; Lymphocytes # (A) 2.82 X 10*3/uL (0.90-5.00); Lymphocytes % (A) 43.9 %; MCH 29.2 pg (27.0-32.0); MCHC 31.9 d/dL (32.0-37.0); MCV 91.3 FL (80.0-97.0); Mean Platelet Volume 10.4 FL (9.5-12.2); Monocytes # (A) 0.49 X 10*3/uL (0.20-1.00); Monocytes % (A) 7.6 %; NRBC Per 100 WBC 0 X 10*3/uL (0.00-0.01); Neutrophils # (A) 2.79 X 10*3/uL (1.80-7.70); Neutrophils % (A) 43.5 %; Platelet Count 235 X 10*3/uL (140-440); RBC 4.73 X 10*6/uL (4.10-5.20); RDW 14.6 % (11.5-14.5); WBC 6.42 X 10*3/uL (4.50-10.00)
[2023-02-27 16:08] LABS: Chol/HDL Ratio 3.09 Ratio; LDL Cholesterol,Calculated 132.2 mg/dL (0.0-131.0)
[2023-02-27 16:29] LABS: ALT 21 U/L (8-44); AST 26 U/L (13-35); Albumin 4.6 d/dL (3.8-4.9); Alkaline Phosphatase 61 U/L (41-126); Blood Urea Nitrogen 9.2 mg/dL (9.0-27.0); Calcium 9.7 mg/dL (8.7-10.3); Chloride 105 mmol/L (96-109); Globulin 2.7 d/dL (1.6-3.3); Glucose 97 mg/dL (70-110); Potassium 4.4 mmol/L (3.5-5.5); Sodium 142 mmol/L (135-145); Total Bilirubin 0.4 mg/dL (0.3-1.2); Total Protein 7.3 d/dL (6.2-8.2)
== END | disposition home or self-care (01) ==
LOC: LABWHC1 10:12
PROVIDERS: ATTEND Family Medicine
DX: A04.8 Other specified bacterial intestinal infections (principal)
CPT/HCPCS: 36415; 80053; 80061; 82306; 82607; 83013; 84443; 85025

== ENCOUNTER → 2023-10-26 | Outpatient (CLI) | payer MEDICARE ==
--- NOTE | 2023-10-29 13:17 | MM ---
Reason for Exam: Screening (asymptomatic). Last mammogram was performed 1 year(s) and 6 month(s) ago. Patient History: Menarche at age 18. First Full-Term at age 20. Postmenopausal. Patient used Estrogen for 1 year. 12/29/2013, Benign Core Biopsy on the right side. Mother had breast cancer, age 91. Daughter had breast cancer, age 48. Risk Values: Kavitha 5 year model risk: 8.8%. NCI Lifetime model risk: 22.5%. Prior Study Comparison: 12/17/2013 Right Diagnostic Mammogram, [facility]. 04/19/2017 Bilateral Screening Mammogram, [facility]. 04/28/2022 Bilateral MG 3D screening mammo w/cad, [facility]. Tissue Density: The breasts are heterogeneously dense, which may obscure small masses. Findings: Analyzed By CAD. There is no suspicious group of microcalcifications or new suspicious mass in either breast. Overall Assessment: Benign, BI-RAD 2 Management: Screening Mammogram of both breasts in 1 year. . Patient should continue monthly self-breast exams. A clinical breast exam by your physician is recommended on an annual basis. This exam should not preclude additional follow-up of suspicious palpable abnormalities. Note on Kavitha scores and lifetime risk: 1. A Kavitha score greater than 3% is considered moderate risk. If this is the case, consider specialist referral to assess eligibility for a risk reducing agent. 2. If overall lifetime risk for the development of breast cancer is 20% or higher, the patient may qualify for future screening with alternating mammogram and breast MRI. Electronically signed and approved by: Vinod Morales M.D. Radiologis
== END | disposition home or self-care (01) ==
LOC: RADMAMWWP 11:44
PROVIDERS: ATTEND Family Medicine
DX: Z12.31 Encounter for screening mammogram for malignant neoplasm of breast (principal); Z80.3 Family history of malignant neoplasm of breast; Z78.0 Asymptomatic menopausal state
CPT/HCPCS: 77063; 77067

== ENCOUNTER → 2024-03-04 | Outpatient (CLI) | payer MEDICARE ==
[2024-03-04 19:03] LABS: ALT 29 U/L (8-44); AST 31 U/L (13-35); Chol/HDL Ratio 1.92 Ratio; LDL Cholesterol,Calculated 65.8 mg/dL (0.0-131.0); VLDL Calculation 17.14 mg/dL (5.00-40.00)
== END | disposition home or self-care (01) ==
LOC: LABWHC1 11:10
PROVIDERS: ATTEND Internal Medicine Interventional Cardiology
DX: E78.2 Mixed hyperlipidemia (principal)
CPT/HCPCS: 36415; 80061; 84450; 84460